=== PATIENT | female | born 1990 | race Caucasian/White ===

== ENCOUNTER 2022-07-07 07:59 | Emergency (ER) | payer OTHER ==
--- NOTE | 2022-07-07 09:08 | EDPHYS ---
Physician Documentation [facility] Name: Rhina Florez Age: 32 yrs Sex: Female : 1990 Arrival Date: 07/07/2022 Time: 08:02 Bed 9 Private MD: ROXI Physician Clinton Chambers HPI: 07/07 09:42 This 32 yrs old Female presents to ER via Ambulatory with complaints of Back Pain. snw 09:42 The patient presents with pain that is acute, with no known mechanism of injury. The snw symptoms are located in the low back. Onset: The symptoms/episode began/occurred suddenly, and became persistent 5 days ago. The pain radiates to the right hamstring, medial aspect of right thigh and medial aspect of right knee. Associated signs and symptoms: Pertinent negatives: constipation, incontinence, tingling, urinary retention. The problem was sustained without known cause. Modifying factors: The patient symptoms are alleviated by nothing, the patient symptoms are aggravated by sitting, bending. Severity of symptoms: At their worst the symptoms were moderate, severe. The patient has not experienced similar symptoms in the past. The patient has not recently seen a physician. 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 - Social history:: Smoking status: Patient/guardian denies using tobacco, the patient reports quitting approximately 1 years ago. ROS: 09:44 Constitutional: Negative for fever, chills, and weight loss, Eyes: Negative for injury, snw pain, redness, and discharge, ENT: Negative for injury, pain, and discharge, Neck: Negative for injury, pain, and swelling, Cardiovascular: Negative for chest pain, palpitations, and edema, Respiratory: Negative for shortness of breath, cough, wheezing, and pleuritic chest pain, Abdomen/GI: Negative for abdominal pain, nausea, vomiting, diarrhea, and constipation, : Negative for injury, bleeding, discharge, and swelling, MS/Extremity: Negative for injury and deformity, + pain down right leg Skin: Negative for injury, rash, and discoloration, Neuro: Negative for headache, weakness, numbness, tingling, and seizure, Psych: Negative for depression, anxiety, suicide ideation, homicidal ideation, and hallucinations. 09:44 Back: Positive for pain at rest, pain with movement, radiated pain. Exam: 09:44 Constitutional: This is a well developed, well nourished patient who is awake, alert, snw and looks uncomfortable. Head/Face: Normocephalic, atraumatic. Eyes: Pupils equal round and reactive to light, extra-ocular motions intact. Lids and lashes normal. Conjunctiva and sclera are non-icteric and not injected. Cornea within normal limits. Periorbital areas with no swelling, redness, or edema. ENT: Nares patent. No nasal discharge, no septal abnormalities noted. Tympanic membranes are normal and external auditory canals are clear. Oropharynx with no redness, swelling, or masses, exudates, or evidence of obstruction, uvula midline. Mucous membranes moist. Neck: Trachea midline, no thyromegaly or masses palpated, and no cervical lymphadenopathy. Supple, full range of motion without nuchal rigidity, or vertebral point tenderness. No Meningismus. Chest/axilla: Normal chest wall appearance and motion. Nontender with no deformity. No lesions are appreciated. Cardiovascular: Regular rate and rhythm with a normal S1 and S2. No gallops, murmurs, or rubs. Normal PMI, no JVD. No pulse deficits. Respiratory: Lungs have equal breath sounds bilaterally, clear to auscultation and percussion. No rales, rhonchi or wheezes noted. No increased work of breathing, no retractions or nasal flaring. Abdomen/GI: Soft, non-tender, with normal bowel sounds. No distension or tympany. No guarding or rebound. No evidence of tenderness throughout. 09:44 Skin: Warm, dry with normal turgor. Normal color with no rashes, no lesions, and no evidence of cellulitis. Neuro: Awake and alert, GCS 15, oriented to person, place, time, and situation. Cranial nerves II-XII grossly intact. Motor strength 5/5 in all extremities. Sensory grossly intact. Cerebellar exam normal. Normal gait. Psych: Awake, alert, with orientation to person, place and time. Behavior, mood, and affect are within normal limits. 09:44 Back: pain, that is moderate, ROM is painful, decreased, muscle spasm, is appreciated in the low back area. 09:44 Musculoskeletal/extremity: positioning for comfort, pt near tears, will medicate. Spouse will come pick her up. Vital Signs: 08:26 BP 130 / 71; Pulse 92; Resp 17 S; Temp 98.2(TE); Pulse Ox 100% on R/A; Weight 83.01 kg jg9 (R); Height 5 ft. 5 in. (165.10 cm) (R); Pain 10/10; 09:20 BP 123 / 85; Pulse 77; Resp 16 S; Pulse Ox 100% on R/A; Pain 10/10; jg9 09:57 BP 115 / 81; Pulse 69; Resp 18 S; Pulse Ox 100% on R/A; Pain 10/10; jg9 08:26 Body Mass Index 30.45 (83.01 kg, 165.10 cm) j9 MDM: 08:34 Patient medically screened. [facility] 09:41 Data reviewed: vital signs, nurses notes. Data interpreted: Pulse oximetry: on room air snw is 100 %. Interpretation: normal. Counseling: I had a detailed discussion with the patient and/or guardian regarding: the historical points, exam findings, and any diagnostic results supporting the discharge/admit diagnosis, to return to the emergency department if symptoms worsen or persist or if there are any questions or concerns that arise at home. Administered Medications: 09:20 Drug: predniSONE 40 mg Route: PO; j9 09:59 Follow up: Response: No adverse reaction; No change in condition j9 09:20 Drug: Pepcid (famotidine) 20 mg Route: PO; jg9 09:59 Follow up: Response: No adverse reaction j9 09:20 Drug: Demerol (meperidine) 25 mg {Note: RASS-0 10/10 lower back pain.} Route: IM; Site: 9 left deltoid; 09:58 Follow up: Response: No adverse reaction; No change in condition j9 09:20 Drug: Valium (diazepam) 2 mg Route: PO; j9 09:58 Follow up: Response: No adverse reaction; No change in condition jg9 Disposition Summary: 07/07/22 09:08 Discharge Ordered Location: Home snw Condition: Stable snw Diagnosis - Low back pain snw Followup: snw - With: Emergency Department - When: As needed - Reason: Worsening of condition Followup: snw - With: Private Physician - When: 2 - 3 days - Reason: Recheck today's complaints, Continuance of care, Re-evaluation by your physician Discharge Instructions: - Discharge Summary Sheet snw - Acute Back Pain, Adult snw - Musculoskeletal Pain snw - How to Use Cold Therapy snw - Rehydration, Adult snw - Heat Therapy snw - Back Exercises snw - Back Injury Prevention snw Forms: - Medication Reconciliation Form snw - Thank You Letter snw - Antibiotic Education snw - Prescription Opioid Use snw Prescriptions: - orphenadrine citrate 100 mg Oral Tablet Sustained Release - take 1 tablet by ORAL route 2 times per day As needed; 20 tablet; Refills: 0, snw Product Selection Permitted - Prednisone 20 mg Oral Tablet - take 1 tablet by ORAL route every 12 hours for 5 days; 10 tablet; Refills: 0, snw Product Selection Permitted Signatures: Clinton Chambers MD MD cha Waters, Shelly, HEAVY TRUCK DRIVER-C HEAVY TRUCK DRIVER-Csnw Rachel Galvin RN RN jg9 Corrections: (The following items were deleted from the chart) 08:32 08:31 Allergies: No Known Allergies; jg9 jg9 08:32 08:31 PSHx: None; jg9 jg9 08:53 08:43 Urine Dipstick-Ancillary reviewed. snw EDMS
--- NOTE | 2022-07-07 09:08 | ER ---
Nurse's Notes [facility] Name: Rhina Florez Age: 32 yrs Sex: Female : 1990 Arrival Date: 07/07/2022 Time: 08:02 Bed 9 Private MD: Diagnosis: Low back pain Presentation: 07/07 08:26 Chief complaint: Patient states: I have been having this back pain ongoing for 5 days jg9 now it started in the left lower back and now is spreading to the right side, patient denied injury, heavy lifting or h of kidney problems. Patient has been taking Tylenol, Motrin and Aleve with no relief, patient having increased walking difficulty and unable to sleep. Coronavirus screen: Vaccine status: Patient reports being unvaccinated. Ebola Screen: Patient negative for fever greater than or equal to 101.5 degrees Fahrenheit, and additional compatible Ebola Virus Disease symptoms Patient denies exposure to infectious person. Patient denies travel to an Ebola-affected area in the 21 days before illness onset. Initial Sepsis Screen: Does the patient meet any 2 criteria? No. Patient's initial sepsis screen is negative. Does the patient have a suspected source of infection? No. Patient's initial sepsis screen is negative. Risk Assessment: Do you want to hurt yourself or someone else? Patient reports no desire to harm self or others. Onset of symptoms is unknown. 08:26 Method Of Arrival: Ambulatory [facility] 08:26 Acuity: ARTURO 3 jg9 Triage Assessment: 08:32 General: Appears uncomfortable, Behavior is anxious, crying. Pain: Complains of pain in jg9 lumbar area, left low back and right low back Pain currently is 10 out of 10 on a pain scale. EENT: No deficits noted. Neuro: No deficits noted. Cardiovascular: No deficits noted. Respiratory: No deficits noted. GI: No deficits noted. : No deficits noted. Derm: No deficits noted. Musculoskeletal: difficulty ambulating due to pain. 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 - Social history:: Smoking status: Patient/guardian denies using tobacco, the patient reports quitting approximately 1 years ago. Screenin:33 Abuse screen: Denies threats or abuse. Denies injuries from another. Nutritional jg9 screening: No deficits noted. Tuberculosis screening: No symptoms or risk factors identified. Fall Risk Fall in past 12 months (25 points). Assessment: 08:49 Reassessment: urine dip is not for this patient, disregard results reviewed. jg9 09:45 Reassessment: No changes from previously documented assessment. Patient and/or family jg9 updated on plan of care and expected duration. Pain level reassessed. Patient is alert, oriented x 3, equal unlabored respirations, skin warm/dry/pink. Patient states symptoms have not improved. Vital Signs: 08:26 BP 130 / 71; Pulse 92; Resp 17 S; Temp 98.2(TE); Pulse Ox 100% on R/A; Weight 83.01 kg jg9 (R); Height 5 ft. 5 in. (165.10 cm) (R); Pain 10/10; 09:20 BP 123 / 85; Pulse 77; Resp 16 S; Pulse Ox 100% on R/A; Pain 10/10; jg9 09:57 BP 115 / 81; Pulse 69; Resp 18 S; Pulse Ox 100% on R/A; Pain 10/10; jg9 08:26 Body Mass Index 30.45 (83.01 kg, 165.10 cm) jg9 ED Course: 08:02 Patient arrived in ED. am2 08:10 Ciara Plascencia FNP-C [facility] snw 08:10 Clinton Chambers MD is Attending Physician. snw 08:31 Triage completed. jg9 08:33 Rachel Galvin, RN is Primary Nurse. jg9 08:33 Arm band placed on right wrist. jg9 09:45 Patient has correct armband on for positive identification. Bed in low position. Call jg9 light in reach. Side rails up X 1. 09:58 No provider procedures requiring assistance completed. jg9 09:58 Patient did not have IV access during this emergency room visit. jg9 Administered Medications: 09:20 Drug: predniSONE 40 mg Route: PO; jg9 09:59 Follow up: Response: No adverse reaction; No change in condition jg9 09:20 Drug: Pepcid (famotidine) 20 mg Route: PO; jg 09:59 Follow up: Response: No adverse reaction jg9 09:20 Drug: Demerol (meperidine) 25 mg {Note: RASS-0 10/10 lower back pain.} Route: IM; Site: [facility] left deltoid; :58 Follow up: Response: No adverse reaction; No change in condition jg9 09:20 Drug: Valium (diazepam) 2 mg Route: PO; jg9 09:58 Follow up: Response: No adverse reaction; No change in condition jg9 Medication: 09:58 VIS not applicable for this client. jg9 Outcome: :08 Discharge ordered by . snadrian :58 Discharged to home via wheelchair. jg9 :58 Condition: unchanged :58 Discharge instructions given to patient, Instructed on discharge instructions, follow up and referral plans. Demonstrated understanding of instructions, follow-up care, Prescriptions given X 2. :59 Patient left the ED. jg9 Signatures: Ciara Plascencia, LEGAL WRITING PROFESSOR-C LEGAL WRITING PROFESSOR-Csnw Mary Manjarrez am2 Rachel Galvin, RN RN jg9 Corrections: (The following items were deleted from the chart) 08:32 08:31 Allergies: No Known Allergies; jg9 jg9 08:32 08:31 PSHx: None; jg9 jg9
[2022-07-07] MEDS ORDERED: DIAZEPAM 2 MG TABLET ONE (09:22)
[2022-07-07] MEDS ORDERED: predniSONE 20 MG TAB ONE (09:23)
[2022-07-07] MEDS ORDERED: FAMOTIDINE 20 MG TAB ONE (09:23)
[2022-07-07] MEDS ORDERED: MEPERIDINE HCL 25 MG/ML SYR ONE (09:23)
[2022-07-07 10:48] VITALS: TEMP 98.2; O2SAT 100
[2022-07-07 10:53] VITALS: BP 115/81
== END 2022-07-07 09:59 | disposition home or self-care (01) ==
LOC: ER 07:59
DX: M54.50 Low back pain, unspecified (principal); Z88.0 Allergy status to penicillin
CPT/HCPCS: J7512; J2175; 96372; 99283

== ENCOUNTER 2022-09-07 08:27 | Emergency (ER) | payer OTHER ==
[2022-09-07 09:47] LABS: Urine Blood Negative (Negative); Urine Glucose Negative (Negative); Urine Protein Negative (Negative); Urine Specific Gravity <=1.005 (1.005-1.030)
--- NOTE | 2022-09-07 11:33 | RAD REPORT ---
EXAM DESCRIPTION: RAD - Lumbar Spine 3 Views - 09/07/2022 10:24 am CLINICAL HISTORY: Back pain FINDINGS: No fracture or dislocation is seen. Minimal posterior subluxation of L5 on S1
[2022-09-07] MEDS ORDERED: LIDOCAINE 4% PATCH ONE (12:01)
[2022-09-07] MEDS ORDERED: KETOROLAC 30 MG/ML INJ ONE (12:01)
--- NOTE | 2022-09-07 12:19 | EDPHYS ---
Physician Documentation [facility] Name: Rhina Florez Age: 32 yrs Sex: Female : 1990 Arrival Date: 09/07/2022 Time: 08:29 Bed 25 Private MD: ED Physician Aguila Zavala HPI: 09/07 09:00 This 32 yrs old Female presents to ER via Ambulatory with complaints of Back Pain. cp 09:00 The patient presents with pain pain. The symptoms are located in the low back. Onset: cp The symptoms/episode began/occurred 3 month(s) ago. 09:00 The pain radiates to the right leg. cp 09:00 Associated signs and symptoms: Pertinent negatives: abdominal pain, constipation, cp dysuria, fever, hematuria, incontinence, numbness, weakness. The problem was sustained Patient reports slip and fall in June 2022 prior to onset of lower back pain. Has been seen in this ED for pain. Pain has continued since fall. Has not had follow up with a family physician. Patient denies bladder and/or bowel incontinence, denies saddle anesthesia, denies history of IV drug use. 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 - Social history:: Smoking status: unknown. ROS: 09:05 Constitutional: Negative for body aches, chills, fever, poor PO intake. cp 09:05 Neck: Negative for pain with movement, pain at rest, stiffness, tenderness, bony tenderness. 09:05 Cardiovascular: Negative for chest pain, edema, palpitations. 09:05 Respiratory: Negative for cough, shortness of breath, wheezing. 09:05 Abdomen/GI: Negative for abdominal pain, nausea, vomiting, and diarrhea, constipation, bowel incontinence. 09:05 Back: Positive for pain at rest, pain with movement, of the low back area. 09:05 : Negative for urinary symptoms, hematuria, difficulty urinating, bladder incontinence. 09:05 Neuro: Negative for altered mental status, dizziness, headache, numbness, weakness. Exam: 09:10 Constitutional: The patient appears in no acute distress, alert, awake, non-toxic, well cp developed, well nourished, uncomfortable. 09:10 Head/Face: Normocephalic, atraumatic. cp 09:10 Eyes: Periorbital structures: appear normal, Conjunctiva: normal, no exudate, no injection, Lids and lashes: appear normal, bilaterally. 09:10 ENT: External ear(s): are unremarkable, Nose: is normal, Mouth: Lips: moist, Oral mucosa: moist, Posterior pharynx: Airway: no evidence of obstruction, patent. 09:10 Neck: ROM/movement: is normal, is supple, without pain, no range of motions limitations. 09:10 Chest/axilla: Inspection: normal. 09:10 Cardiovascular: Rate: normal. 09:10 Respiratory: the patient does not display signs of respiratory distress, Respirations: normal, no use of accessory muscles, no retractions, labored breathing, is not present. 09:10 Abdomen/GI: Inspection: abdomen appears normal, Palpation: abdomen is soft and non-tender, in all quadrants. 09:10 Back: pain, that is moderate, of the low back area, ROM is painful, with all movement, Straight leg raises: of both lower extremities does not illicit pain. 09:10 Neuro: Motor: moves all fours, strength is normal, Sensation: is normal, Gait: is steady, Deep tendon reflexes are 2+ (normal) in the right patellar, right Achilles, left patellar and left Achilles. Vital Signs: 09:37 BP 116 / 81; Pulse 83; Resp 16; Temp 98.3; Pulse Ox 100% ; iw 12:10 BP 116 / 92; Pulse 66; Resp 16; Pulse Ox 100% on R/A; eh3 MDM: 10:26 Patient medically screened. cp 12:18 Data reviewed: vital signs, nurses notes, lab test result(s), radiologic studies, plain cp films. 12:18 Test interpretation: by ED physician or midlevel provider: plain radiologic studies. cp Counseling: I had a detailed discussion with the patient and/or guardian regarding: the historical points, exam findings, and any diagnostic results supporting the discharge/admit diagnosis, lab results, radiology results, the need for outpatient follow up, for definitive care, a family practitioner, to return to the emergency department if symptoms worsen or persist or if there are any questions or concerns that arise at home. Response to treatment: the patient's symptoms have mildly improved after treatment, and as a result, I will discharge patient. ED course: VSS. Pain improved. Discussed results of xrays and exam that was negative for emergent findings: patient denies bowel and/or bladder incontinence, saddle anesthesia. Will discharge to home to follow up with family physician. 09/07 09:48 Order name: Urine Dipstick-Ancillary; Complete Time: 09:53 EDMS 09/07 09:55 Interpretation: Normal except: UESTR 1+. cp 09/07 08:53 Order name: XRAY Lumbar Spine (3 Views); Complete Time: 12:07 cp 09/07 12:07 Interpretation: Report reviewed. cp 09/07 08:53 Order name: Urine Dipstick-Ancillary (obtain specimen); Complete Time: 09:41 cp 09/07 08:53 Order name: Urine Test (obtain specimen); Complete Time: 09:48 cp Administered Medications: 12:05 Drug: Lidoderm Patch 5 % (700 mg/patch) 1 patches Route: Topical; Site: affected area; eh3 12:05 Drug: Ketorolac 30 mg Route: IM; Site: right ventrogluteal; eh3 12:36 Follow up: Response: No adverse reaction ld1 Disposition Summary: 09/07/22 12:18 Discharge Ordered Location: Home cp Problem: new cp Symptoms: have improved cp Condition: Stable cp Diagnosis - Low back pain cp Followup: cp - With: Private Physician - When: 2 - 3 days - Reason: Recheck today's complaints Discharge Instructions: - Discharge Summary Sheet cp - Chronic Back Pain cp - Heat Therapy cp - Back Exercises cp Forms: - Medication Reconciliation Form cp - Thank You Letter cp - Antibiotic Education cp - Prescription Opioid Use cp Prescriptions: - Cyclobenzaprine 10 mg Oral Tablet - take 1 tablet by ORAL route every 8 hours As needed; 30 tablet; Refills: 0, cp Product Selection Permitted - Lidoderm 5 % Topical adhesive patch,medicated - apply 1 patch by TOPICAL route once daily As needed; 10 patch; Refills: 0, cp Product Selection Permitted - Diclofenac Sodium 75 mg Oral Tablet Sustained Release - take 1 tablet by ORAL route 2 times per day; 30 tablet; Refills: 0, Product cp Selection Permitted Addendum: 09/08/2022 13:06 Co-signature as Attending Physician, Aguila hilario Signatures: Dispatcher [facility] Anshul, Klarissa, Aguila Rosario RN, MD MD rn Page, Corey, PA PA cp Morenita Isbell RN RN 3 Yin Dial RN ld1 Corrections: (The following items were deleted from the chart) Back: Positive for pain at rest, pain with movement, of the low back area, cp cp Abdomen/GI: Negative for abdominal pain, nausea, vomiting, and diarrhea, cp constipation, bowel incontinence, cp : Negative for urinary symptoms, hematuria, difficulty urinating, bladder cp incontinence, cp Neuro: Negative for altered mental status, dizziness, headache, numbness, cp weakness, cp Constitutional: Negative for body aches, chills, fever, poor PO intake, cp cp Neck: Negative for pain with movement, pain at rest, stiffness, tenderness, bony cp tenderness, cp Cardiovascular: Negative for chest pain, edema, palpitations, cp cp Respiratory: Negative for cough, shortness of breath, wheezing, cp cp
--- NOTE | 2022-09-07 12:19 | ER ---
Nurse's Notes [facility] Name: Rhina Floerz Age: 32 yrs Sex: Female : 1990 Arrival Date: 09/07/2022 Time: 08:29 Bed 25 Private MD: Diagnosis: Low back pain Presentation: 09/07 09:37 Chief complaint: Patient states: slipped in November on icy stairs , is having low bck iw pain flared up since May. Coronavirus screen: At this time, the client does not indicate any symptoms associated with coronavirus-19. Ebola Screen: Patient negative for fever greater than or equal to 101.5 degrees Fahrenheit, and additional compatible Ebola Virus Disease symptoms Patient denies exposure to infectious person. Patient denies travel to an Ebola-affected area in the 21 days before illness onset. No symptoms or risks identified at this time. Initial Sepsis Screen: Does the patient meet any 2 criteria? No. Patient's initial sepsis screen is negative. Does the patient have a suspected source of infection? No. Patient's initial sepsis screen is negative. Risk Assessment: Do you want to hurt yourself or someone else? Patient reports no desire to harm self or others. Onset of symptoms was May 2022. 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 - Social history:: Smoking status: unknown. Screenin:10 Abuse screen: Denies threats or abuse. Denies injuries from another. Nutritional eh3 screening: No deficits noted. Tuberculosis screening: No symptoms or risk factors identified. Fall Risk None identified. Assessment: 12:10 General: Appears distressed, uncomfortable, Behavior is cooperative, appropriate for eh3 age. Pain: Complains of pain in right low back Pain radiates to right leg Pain currently is 9 out of 10 on a pain scale. Quality of pain is described as sharp, shooting, Pain began May 2022 Is intermittent. Neuro: Level of Consciousness is awake, alert, obeys commands, Oriented to person, place, time, situation. Cardiovascular: Capillary refill < 3 seconds Patient's skin is warm and dry. Respiratory: Airway is patent Respiratory effort is even, unlabored, Respiratory pattern is regular, symmetrical. GI: No signs and/or symptoms were reported involving the gastrointestinal system. : No signs and/or symptoms were reported regarding the genitourinary system. EENT: No signs and/or symptoms were reported regarding the EENT system. Derm: No signs and/or symptoms reported regarding the dermatologic system. Musculoskeletal: Circulation, motion, and sensation intact. Range of motion: intact in all extremities. 12:37 Reassessment: Patient appears in no apparent distress at this time. Patient is alert, ld1 oriented x 3, equal unlabored respirations, skin warm/dry/pink. Vital Signs: 09:37 BP 116 / 81; Pulse 83; Resp 16; Temp 98.3; Pulse Ox 100% ; iw 12:10 BP 116 / 92; Pulse 66; Resp 16; Pulse Ox 100% on R/A; eh3 ED Course: 08:29 Patient arrived in ED. mr 08:45 Clinton Browne PA is PHCP. cp 08:45 Aguila Zavala MD is Attending Physician. cp 09:39 Triage completed. iw 09:39 Arm band placed on. iw 09:48 Urine Microscopic Only Sent. tw2 10:26 XRAY Lumbar Spine (3 Views) In Process Unspecified. EDMS 11:57 Morenita Isbell, RN is Primary Nurse. eh3 12:10 Patient has correct armband on for positive identification. Bed in low position. Call eh3 light in reach. Side rails up X2. Pulse ox on. NIBP on. Door closed. Noise minimized. 12:37 No provider procedures requiring assistance completed. Patient did not have IV access ld1 during this emergency room visit. Administered Medications: 12:05 Drug: Lidoderm Patch 5 % (700 mg/patch) 1 patches Route: Topical; Site: affected area; eh3 12:05 Drug: Ketorolac 30 mg Route: IM; Site: right ventrogluteal; eh3 12:36 Follow up: Response: No adverse reaction ld1 Medication: 12:37 VIS not applicable for this client. ld1 Outcome: 12:18 Discharge ordered by . cp 12:37 Discharged to home ambulatory. ld1 12:37 Condition: good 12:37 Discharge instructions given to patient, Instructed on discharge instructions, follow up and referral plans. medication usage, Demonstrated understanding of instructions, follow-up care, medications, Prescriptions given X 3. 12:37 Patient left the ED. ld1 Signatures: Dispatcher [employer] KENTRELL ZamoraCintia Irene, RN RN iw Clinton Browne PA PA cp Wise, Tara, RN RN tw2 Yin Dial RN RN ld1 Morenita Isbell RN RN eh3
[2022-09-07 12:47] VITALS: TEMP 98.3; O2SAT 100
[2022-09-07 12:48] VITALS: BP 116/92
== END 2022-09-07 12:37 | disposition home or self-care (01) ==
LOC: ER 08:27
DX: M54.50 Low back pain, unspecified (principal); Z88.0 Allergy status to penicillin
CPT/HCPCS: 81003; 72100; 96372; 99284; J2001